=== PATIENT | male | born 1970 | race Two or more races ===

== ENCOUNTER 2018-02-07 13:25 | Emergency (ER) | payer SELFPAY ==
[2018-02-07] MEDS ORDERED: NORMAL SALINE 1000 ML 1,000 ML IV ONE ×2 (13:43→14:41)
[2018-02-07] MEDS ORDERED: NORMAL SALINE 1000 ML 1,000 ML IV PRN (13:43)
[2018-02-07] MEDS ORDERED: KETOROLAC TROMETHAMINE INJ/PF 30 MG/1 ML SDV IV ONE (13:45)
[2018-02-07] MEDS ORDERED: LORAZEPAM INJ 2 MG/1 ML VIAL IV ONE (13:45)
--- NOTE | 2018-02-07 13:46 | ER Document Report ---
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 Had heat exhaustion, started having tired and weak dizzy generalized body aches and pain right sided chest pain and cramps therefore present to the ED. First degree skin burn. TRAVEL OUTSIDE OF THE [place] IN LAST 30 DAYS: No - Related Data Allergies/Adverse Reactions: No Known Allergies Allergy (Verified 02/07/18 13:26)
[2018-02-07 14:11] LABS: HEMATOCRIT 46.1 % (37.9-51.0); HEMOGLOBIN 15.8 g/dL (13.5-17.0); MEAN CORPUSCULAR HGB CONC 34.3 g/dL (32.0-36.0); MEAN CORPUSCULAR VOLUME 96 fl (80-97); PLATELET COUNT 263 10^3/uL (150-450); RED BLOOD COUNT 4.79 10^6/uL (4.35-5.55); RED CELL DISTRIBUTION WIDTH 12.8 % (11.5-14.0); WHITE BLOOD COUNT 11.1 10^3/uL (4.0-10.5)
[2018-02-07 14:34] LABS: BLOOD UREA NITROGEN 18 mg/dL (7-20); CARBON DIOXIDE 25 mmol/L (22-30); CHLORIDE 97 mmol/L (98-107); GLUCOSE 131 mg/dL (75-110); POTASSIUM 4.2 mmol/L (3.6-5.0)
[2018-02-07 14:35] LABS: ALANINE AMINOTRANSFERASE 27 U/L (21-72); ALBUMIN 5.5 g/dL (3.5-5.0); ALKALINE PHOSPHATASE 75 U/L (38-126); ASPARTATE AMINO TRANSFERASE 31 U/L (17-59); BILIRUBIN,DIRECT 0.3 mg/dL (0.0-0.4); BILIRUBIN,TOTAL 0.7 mg/dL (0.2-1.3); CREATINE KINASE 145 U/L (55-170); TOTAL PROTEIN 9.3 g/dL (6.3-8.2)
[2018-02-07 14:40] LABS: SODIUM 141.9 mmol/L (137-145)
[2018-02-07 14:42] LABS: ANION GAP 20 (5-19)
[2018-02-07 14:45] LABS: CREATINE KINASE MB 1.32 ng/mL (<4.55)
[2018-02-07 14:47] LABS: TROPONIN I 0.034 ng/mL
--- NOTE | 2018-02-07 14:54 | ER Document Report ---
ED General - General Chief Complaint: Chest Pain Stated Complaint: CHEST PAIN Time Seen by Provider: 02/07/18 13:43 Mode of Arrival: Ambulatory Information source: Patient Notes: 47-year-old male who has been losing outdoors and 90 weather presents with complaints of generalized body aches cramping. Patient notes his muscles all started to spasm prior to arrival. Including in his back his chest abdomen legs arms. Significant other notes she could see the muscles spasming and thought he may have been having a seizure but noted that he was awake during these episodes. Patient himself notes significant improvements after IV fluids were given TRAVEL OUTSIDE OF THE [place] IN LAST 30 DAYS: No - HPI Onset: Just prior to arrival Onset/Duration: Sudden Quality of pain: Cramping Severity: Moderate Pain Level: 4 Associated symptoms: Body/muscle aches Exacerbated by: Other - Being outdoors in the heat Relieved by: Denies Similar symptoms previously: No Recently seen / treated by doctor: No - Related Data Allergies/Adverse Reactions: No Known Allergies Allergy (Verified 02/07/18 13:26) Past Medical History - Social History Smoking Status: Current Every Day Smoker Cigarette use (# per day): Yes Chew tobacco use (# tins/day): No Smoking Education Provided: No Frequency of alcohol use: Occasional Drug Abuse: Marijuana Family History: Reviewed & Not Pertinent Patient has suicidal ideation: No Patient has homicidal ideation: No Renal/ Medical History: Denies: Hx Peritoneal Dialysis Review of Systems - Review of Systems Notes: REVIEW OF SYSTEMS: CONSTITUTIONAL : Denies fever, chills, or sweats. Denies recent illness. EENT: Denies eye, ear, throat, or mouth pain or symptoms. Denies nasal or sinus congestion or discharge. Denies throat, tongue, or mouth swelling or difficulty swallowing. CARDIOVASCULAR: Denies chest pain. Denies palpitations or racing or irregular heart beat. Denies ankle edema. RESPIRATORY: Denies cough, cold, or chest congestion. Denies shortness of breath, difficulty breathing, or wheezing. GASTROINTESTINAL: Denies abdominal pain or distention. Denies nausea, vomiting , or diarrhea. Denies blood in vomitus, stools, or per rectum. Denies black, tarry stools. Denies constipation. GENITOURINARY: Denies difficulty urinating, painful urination, burning, frequency, blood in urine, or discharge. MUSCULOSKELETAL: Admits to muscle aches spasms SKIN: Denies rash, lesions or sores. HEMATOLOGIC : Denies easy bruising or bleeding. LYMPHATIC: Denies swollen, enlarged glands. NEUROLOGICAL: Denies confusion or altered mental status. Denies passing out or loss of consciousness. Denies dizziness or lightheadedness. Denies headache. Denies weakness or paralysis or loss of use of either side. Denies problems with gait or speech. Denies sensory loss, numbness, or tingling. Denies seizures. PSYCHIATRIC: Denies anxiety or stress. Denies depression, suicidal ideation, or homicidal ideation. ALL OTHER SYSTEMS REVIEWED AND NEGATIVE. Dictation was performed using [employer] voice recognition software PHYSICAL EXAMINATION: GENERAL: Well-appearing, well-nourished and in no acute distress. HEAD: Atraumatic, normocephalic. EYES: Pupils equal round and reactive to light, extraocular movements intact, sclera anicteric, conjunctiva are normal. ENT: Nares patent, oropharynx clear without exudates. Moist mucous membranes. NECK: Normal range of motion, supple without lymphadenopathy LUNGS: Breath sounds clear to auscultation bilaterally and equal. No wheezes rales or rhonchi. HEART: Regular rate and rhythm without murmurs ABDOMEN: Soft, nontender, nondistended abdomen. No guarding, no rebound. No masses appreciated. Musculoskeletal: Normal range of motion, no pitting or edema. No cyanosis. NEUROLOGICAL: Cranial nerves grossly intact. Normal speech, normal gait. Normal sensory, motor exams PSYCH: Normal mood, normal affect. SKIN: multiple tattoos Warm, Dry, normal turgor, no rashes or lesions noted. Physical Exam - Vital signs Vitals: Resp BP Pulse Ox 17 119/74 98 02/07/18 15:00 02/07/18 15:00 02/07/18 15:00 Course - Re-evaluation Re-evalutation: 02/07/18 14:53 Patient's presentation is most consistent with acute renal failure secondary to severe dehydration, patient has been given 1 L of fluids thus far I have ordered 3 more liters and will recheck his lab work at that time, there is no signs of rhabdo at this time 02/07/18 15:13 pt feels well, awaiting further hydration 02/07/18 20:11 Creatinine has improved to 1.3 patient is stable for discharge encouraged further hydration - Vital Signs Vital signs: Temp Pulse Resp BP Pulse Ox 16 116/84 100 02/07/18 19:01 02/07/18 19:00 02/07/18 19:01 - Laboratory Result Diagrams: 02/07/18 13:48 02/07/18 19:33 Laboratory results interpreted by me: 02/07/18 02/07/18 02/07/18 13:48 13:48 19:33 WBC 11.1 H Chloride 97 L Anion Gap 20 H Creatinine 2.63 H 1.32 H Est GFR ( Amer) 32 L Est GFR (Non-Af Amer) 26 L 58 L Glucose 131 H Calcium 11.0 H Total Protein 9.3 H Albumin 5.5 H Discharge - Discharge Clinical Impression: Acute renal failure Qualifiers: Acute renal failure type: unspecified Qualified Code(s): N17.9 - Acute kidney failure, unspecified Condition: Stable Disposition: HOME, SELF-CARE Instructions: Dehydration ([facility]) Forms: Return to Work
[2018-02-07] MEDS: NORMAL SALINE 1000 ML 1,000 ML IV PRN ×2 (15:22→15:24)
[2018-02-07 20:02] LABS: ALANINE AMINOTRANSFERASE 22 U/L (21-72); ALBUMIN 3.8 g/dL (3.5-5.0); ALKALINE PHOSPHATASE 58 U/L (38-126); ANION GAP 11 (5-19); ASPARTATE AMINO TRANSFERASE 22 U/L (17-59); BILIRUBIN,DIRECT 0.2 mg/dL (0.0-0.4); BILIRUBIN,TOTAL 0.3 mg/dL (0.2-1.3); BLOOD UREA NITROGEN 16 mg/dL (7-20); CALCIUM 8.5 mg/dL (8.4-10.2); CARBON DIOXIDE 23 mmol/L (22-30); CHLORIDE 107 mmol/L (98-107); GLUCOSE 104 mg/dL (75-110); POTASSIUM 4.1 mmol/L (3.6-5.0); SODIUM 141.2 mmol/L (137-145); TOTAL PROTEIN 6.5 g/dL (6.3-8.2)
[2018-02-07 21:00] VITALS: BP 125/85
--- NOTE | 2018-02-08 | EKG REPORT ---
SEVERITY:- BORDERLINE ECG - SINUS RHYTHM PROBABLE LEFT ATRIAL ABNORMALITY BORDERLINE LEFT AXIS DEVIATION ST ELEV, PROBABLE NORMAL EARLY REPOL PATTERN : Confirmed by: Jerrica Mendez MD 07-Feb-2018 23:58:45
== END 2018-02-07 20:57 | disposition home or self-care (01) ==
LOC: ER 13:25
DX: N17.9 Acute kidney failure, unspecified (principal); R07.9 Chest pain, unspecified; M79.1 Myalgia; M62.838 Other muscle spasm; F17.210 Nicotine dependence, cigarettes, uncomplicated
CPT/HCPCS: 93005; 99285; 96361; 96374; 96375; 36415; 82553; 82550; 85027; 80053; 84484; 83880; 93010; J1885; J2060; J7030